=== PATIENT | female | born 1940 | race Hispanic/Latino ===

== ENCOUNTER 2018-05-15 08:01 | Emergency (ER) | payer MEDICARE, OTHER ==
[~2018-05-15 08:01] MED LIST: ATOR20TA65 PO; CETI10TA86 PO; DIPH25CA85 PO; HYDR-2132 PO; LEVO75TA10 PO
[2018-05-15] MEDS ORDERED: CYCLOBENZAPRINE HCL 10 MG TABLET ONE (09:55)
[2018-05-15] MEDS ORDERED: TRAMADOL HCL 50 MG TABLET ONE (09:56)
== END 2018-05-15 10:29 | disposition home or self-care (01) ==
LOC: EDH 08:01
DX: S43.422A Sprain of left rotator cuff capsule, initial encounter (principal); R03.0 Elevated blood-pressure reading, without diagnosis of hypertension; E07.9 Disorder of thyroid, unspecified; E78.5 Hyperlipidemia, unspecified; X50.0XXA Overexertion from strenuous movement or load, initial encounter; Y93.89 Activity, other specified; Y92.89 Other specified places as the place of occurrence of the external cause; Y99.8 Other external cause status
CPT/HCPCS: 71045; 73030

== ENCOUNTER → 2018-09-01 | Outpatient (CLI) | payer MEDICARE, OTHER | END | disposition home or self-care (01) | LOC: OIH 09:00 | PROVIDERS: ATTEND Family Medicine | DX: I10 Essential (primary) hypertension (principal); I70.0 Atherosclerosis of aorta; R53.82 Chronic fatigue, unspecified | CPT/HCPCS: 71046 ==

== ENCOUNTER → 2019-08-22 | Outpatient (CLI) | payer MEDICARE, OTHER | END | disposition home or self-care (01) | LOC: RAH 13:58 | PROVIDERS: ATTEND Family Medicine | DX: Z12.31 Encounter for screening mammogram for malignant neoplasm of breast (principal) | CPT/HCPCS: 77067 ==

== ENCOUNTER → 2021-05-10 | Outpatient (CLI) | payer MEDICARE, OTHER | END | disposition home or self-care (01) | LOC: RAH 09:09 | PROVIDERS: ATTEND Family Medicine | DX: R10.13 Epigastric pain (principal); K59.00 Constipation, unspecified; M85.80 Other specified disorders of bone density and structure, unspecified site | CPT/HCPCS: 74018 ==

== ENCOUNTER → 2023-04-29 | Outpatient (CLI) | payer OTHER ==
[~2023-04-29] MED LIST changes: -CETI10TA86 PO; +CETI10TA87 PO
== END | disposition home or self-care (01) ==
LOC: RAH 06:50
PROVIDERS: ATTEND Internal Medicine Gastroenterology
DX: R11.0 Nausea (principal); R10.13 Epigastric pain
CPT/HCPCS: 78264; A9541

== ENCOUNTER → 2023-06-04 | Outpatient (CLI) | payer OTHER | END | disposition home or self-care (01) | LOC: RAH 07:52 | PROVIDERS: ATTEND Internal Medicine Gastroenterology | DX: K76.0 Fatty (change of) liver, not elsewhere classified (principal); R10.13 Epigastric pain; J90 Pleural effusion, not elsewhere classified | CPT/HCPCS: 76700 ==

== ENCOUNTER 2023-06-17 10:24 | Emergency (ER) | payer OTHER ==
[~2023-06-17] VITALS: Ht 167.6 cm; Wt 59.9 kg
[2023-06-17 11:22] LABS: BASOPHILS # (AUTO) 0.04 K/uL (0.00-0.20); BASOPHILS % (AUTO) 0.2 % (0.0-5.0); EOSINOPHILS # (AUTO) 0.01 K/uL (0.00-0.70); EOSINOPHILS % (AUTO) 0.1 % (0.0-8.0); HEMATOCRIT 39.2 % (36-48); IMMATURE GRANULOCYTE ABSOLUTE 0.15 K/uL (0-1); LYMPHOCYTES % (AUTO) 11.6 % (21.0-51.0); MEAN CORPUSCULAR HEMOGLOBIN 30.5 pg (27.0-33.0); MEAN CORPUSCULAR HGB CONC 33.9 g/dL (32.0-36.0); MEAN CORPUSCULAR VOLUME 89.9 fL (79-99); MONOCYTES # (AUTO) 1.1 K/uL (0.1-1.0); MONOCYTES % (AUTO) 6.5 % (3.0-13.0); NEUTROPHILS # (AUTO) 13.9 K/uL (1.8-7.7); NEUTROPHILS % (AUTO) 80.7 % (40.0-77.0); PLATELET COUNT (AUTO) 262 K/uL (130-400); RED BLOOD CELL COUNT(AUTO) 4.36 MIL/uL (4.00-5.50); RED CELL DISTRIBUTION WIDTH 13.2 % (11.0-15.5); WHITE BLOOD COUNT (AUTO) 17.2 K/uL (4.8-10.8)
[2023-06-17] MEDS ORDERED: MORPHINE 4 MG SYG IVP ONE (11:30)
[2023-06-17] MEDS ORDERED: PANTOPRAZOLE 40 MG/VIAL IVP ONE (11:30)
[2023-06-17] MEDS ORDERED: LIDOCAINE HCL 2% VISCOUS 15 ML UDCUP PO ONE ×2 (11:30→15:30)
[2023-06-17] MEDS ORDERED: 0.9%NACL 1000ML 2,000 ML IV ONE (11:30)
[2023-06-17] MEDS ORDERED: ONDANSETRON 4MG INJ IVP ONE (11:30)
[2023-06-17 11:35] LABS: ALBUMIN 4.5 g/dL (3.5-5.0); BILIRUBIN,TOTAL 0.6 mg/dL (0.2-1.0); CREATININE 0.9 mg/dL (0.5-1.5); POTASSIUM 3.3 mmol/L (3.5-5.1)
[2023-06-17] MEDS: MAG/ALUM/SIMETH 30 ML UDCUP PO ONE ×2 (11:52→15:28)
[2023-06-17] MEDS ORDERED: POTASSIUM BICARB/CIT AC 25 MEQ TABLET.EFF PO ONE (12:00)
[2023-06-17] MEDS ORDERED: ZOSYN 3.375GM +NS 50ML IVPB ONE (12:00)
[2023-06-17] MEDS ORDERED: ZOSYN 3.375GM+NS 50ML 50 ML IVPB ONE (12:03)
[2023-06-17 12:40] LABS: APPEARANCE,URINE CLOUDY (CLEAR); BILIRUBIN,URINE NEGATIVE (NEGATIVE); COLOR,URINE YELLOW (YELLOW); GLUCOSE, URINE (UA) NEGATIVE (NEGATIVE); KETONES,URINE 60 mg/dL (NEGATIVE); LEUKOCYTE ESTERASE ,URINE NEGATIVE Leu/uL (NEGATIVE); NITRATE,URINE NEGATIVE (NEGATIVE); OCCULT BLOOD,URINE NEGATIVE (NEGATIVE); PROTEIN,URINE 50 mg/dL (NEGATIVE); UROBILINOGEN,URINE 0.2 mg/dL (0.2-1.0)
[2023-06-17 12:44] LABS: ADD UA MICROSCOPIC YES
[2023-06-17 12:50] LABS: BACTERIA,URINE MOD /HPF (None Seen); MUCUS,URINE MANY LPF (None Seen); OTHER CASTS, URINE 1 /LPF (None Seen); SQUAMOUS EPITHELIAL CELL,UR RARE /HPF (0-2)
[2023-06-17] MEDS ORDERED: MORPHINE 2 MG SYG IVP ONE (13:00)
[2023-06-17 15:32] VITALS: BP 139/74; PULSE 89; RESP 16; O2SAT 96
[2023-06-17] MEDS ORDERED: NA P133E22 RC (17:49)
== END 2023-06-17 18:43 | disposition home or self-care (01) ==
LOC: EDH 10:24
DX: K59.00 Constipation, unspecified (principal); D72.829 Elevated white blood cell count, unspecified; E78.00 Pure hypercholesterolemia, unspecified; K21.9 Gastro-esophageal reflux disease without esophagitis; E03.9 Hypothyroidism, unspecified; M19.90 Unspecified osteoarthritis, unspecified site; F03.90 Unspecified dementia, unspecified severity, without behavioral disturbance, psychotic disturbance, mood disturbance, and anxiety; Z79.899 Other long term (current) drug therapy
CPT/HCPCS: 99285; 74176; 96365; 96375; 82150; 84484; 80053; 83690; 85025; 87040 ×2; 87077; 87088; 87186; 83605 ×2; 81001; 36415; 96376; 93005; J2270 ×2; J7030; J2405; J2543; C9113

== ENCOUNTER 2023-06-18 21:33 | Emergency (ER) | payer OTHER ==
[~2023-06-18] VITALS: Ht 165.1 cm; Wt 59.9 kg
[~2023-06-18 21:33] MED LIST changes: +NA P133E22 RC
[2023-06-18] MEDS ORDERED: 0.9%NACL 1000ML 1,000 ML IV ONE (22:00)
[2023-06-18] MEDS ORDERED: ONDANSETRON 4MG INJ IVP ONE (22:00)
[2023-06-18] MEDS ORDERED: FAMOTIDINE 20MG VIAL IV ONE (22:00)
[2023-06-18 22:13] LABS: BASOPHILS # (AUTO) 0.04 K/uL (0.00-0.20); BASOPHILS % (AUTO) 0.4 % (0.0-5.0); EOSINOPHILS # (AUTO) 0.05 K/uL (0.00-0.70); EOSINOPHILS % (AUTO) 0.4 % (0.0-8.0); HEMATOCRIT 35.5 % (36-48); IMMATURE GRANULOCYTE ABSOLUTE 0.07 K/uL (0-1); LYMPHOCYTES # (AUTO) 3.7 K/uL (1.0-4.8); LYMPHOCYTES % (AUTO) 32.7 % (21.0-51.0); MEAN CORPUSCULAR HEMOGLOBIN 30.9 pg (27.0-33.0); MEAN CORPUSCULAR HGB CONC 34.1 g/dL (32.0-36.0); MEAN CORPUSCULAR VOLUME 90.6 fL (79-99); MONOCYTES # (AUTO) 0.9 K/uL (0.1-1.0); MONOCYTES % (AUTO) 7.7 % (3.0-13.0); NEUTROPHILS # (AUTO) 6.6 K/uL (1.8-7.7); NEUTROPHILS % (AUTO) 58.2 % (40.0-77.0); PLATELET COUNT (AUTO) 245 K/uL (130-400); RED BLOOD CELL COUNT(AUTO) 3.92 MIL/uL (4.00-5.50); RED CELL DISTRIBUTION WIDTH 13.3 % (11.0-15.5); WHITE BLOOD COUNT (AUTO) 11.4 K/uL (4.8-10.8)
[2023-06-18 22:25] LABS: CREATININE 0.8 mg/dL (0.5-1.5); POTASSIUM 3.2 mmol/L (3.5-5.1)
[2023-06-18 22:34] LABS: ALBUMIN 3.8 g/dL (3.5-5.0); BILIRUBIN,TOTAL 0.6 mg/dL (0.2-1.0); TOTAL PROTEIN, SERUM 7.1 g/dL (6.0-8.3)
[2023-06-19 00:02] LABS: APPEARANCE,URINE CLEAR (CLEAR); BILIRUBIN,URINE NEGATIVE (NEGATIVE); COLOR,URINE COLORLESS (YELLOW); GLUCOSE, URINE (UA) NEGATIVE (NEGATIVE); KETONES,URINE NEGATIVE (NEGATIVE); LEUKOCYTE ESTERASE ,URINE NEGATIVE Leu/uL (NEGATIVE); NITRATE,URINE NEGATIVE (NEGATIVE); OCCULT BLOOD,URINE NEGATIVE (NEGATIVE); PH,URINE 7.5 (5.0-8.0); PROTEIN,URINE NEGATIVE (NEGATIVE); UROBILINOGEN,URINE 0.2 mg/dL (0.2-1.0)
[2023-06-19 00:05] LABS: MUCUS,URINE RARE LPF (None Seen); SQUAMOUS EPITHELIAL CELL,UR RARE /HPF (0-2)
[2023-06-19] MEDS ORDERED: ONDA4TAB10 PO (00:20)
[2023-06-19] MEDS ORDERED: LACT20PA6 PO (00:20)
[2023-06-19] MEDS ORDERED: DOCU-116 PO (00:20)
[2023-06-19] MEDS ORDERED: SUCR1TAB2 PO (00:20)
[2023-06-19 00:32] VITALS: BP 164/74; PULSE 80; RESP 18; O2SAT 99
[2023-07-06] MEDS ORDERED: SUCR1ORA15 PO (19:29)
[2023-07-06] MEDS ORDERED: ONDA-104 PO (19:29)
== END 2023-06-19 00:40 | disposition home or self-care (01) ==
LOC: EDH 21:33
DX: K59.00 Constipation, unspecified (principal); R10.13 Epigastric pain; R11.2 Nausea with vomiting, unspecified; F03.90 Unspecified dementia, unspecified severity, without behavioral disturbance, psychotic disturbance, mood disturbance, and anxiety; E78.00 Pure hypercholesterolemia, unspecified; E03.9 Hypothyroidism, unspecified; K21.9 Gastro-esophageal reflux disease without esophagitis; M19.90 Unspecified osteoarthritis, unspecified site
CPT/HCPCS: 99284; 96374; 96361; 96375; 84484; 80053; 85025; 81001; 36415; 93005; J3490; J7030; J2405

== ENCOUNTER 2023-06-22 09:30 | Observation (INO) | payer OTHER ==
[~2023-06-22] VITALS: Ht 167.6 cm; Wt 56.0 kg
[~2023-06-22 09:30] MED LIST changes: +DOCU-116 PO; +LACT20PA6 PO; +ONDA4TAB10 PO; +SUCR1TAB2 PO
[2023-06-22] MEDS ORDERED: DIPHENHYDRAMINE HCL 25 MG CAPSULE PO PRN (11:00)
[2023-06-22] MEDS ORDERED: ACETAMINOPHEN 325 MG TAB PO PRN (11:00)
[2023-06-22] MEDS ORDERED: MAG/ALUM/SIMETH 30 ML UDCUP PO PRN (11:00)
[2023-06-22] MEDS ORDERED: ZOLPIDEM TARTRATE 5 MG TAB PO PRN (11:00)
[2023-06-22] MEDS ORDERED: ONDANSETRON 4MG INJ IVP PRN (11:00)
[2023-06-22] MEDS ORDERED: GUAIFENESIN-DM 200/20 MG 10 ML PO PRN (11:00)
[2023-06-22 11:09] LABS: CREATININE 1.3 mg/dL (0.5-1.5)
[2023-06-22 11:10] LABS: ALBUMIN 4.5 g/dL (3.5-5.0); BILIRUBIN,TOTAL 0.6 mg/dL (0.2-1.0); TOTAL PROTEIN, SERUM 8.4 g/dL (6.0-8.3)
[2023-06-22 11:12] LABS: POTASSIUM 2.3 mmol/L (3.5-5.1)
[2023-06-22 11:23] LABS: BILIRUBIN,DIRECT 0.2 mg/dL (0.0-0.3)
[2023-06-22 11:36] LABS: BASOPHILS # (AUTO) 0.05 K/uL (0.00-0.20); BASOPHILS % (AUTO) 0.5 % (0.0-5.0); EOSINOPHILS # (AUTO) 0.07 K/uL (0.00-0.70); EOSINOPHILS % (AUTO) 0.6 % (0.0-8.0); HEMATOCRIT 43.4 % (36-48); IMMATURE GRANULOCYTE ABSOLUTE 0.12 K/uL (0-1); LYMPHOCYTES # (AUTO) 3.8 K/uL (1.0-4.8); LYMPHOCYTES % (AUTO) 34.7 % (21.0-51.0); MEAN CORPUSCULAR HEMOGLOBIN 31.4 pg (27.0-33.0); MEAN CORPUSCULAR HGB CONC 35.5 g/dL (32.0-36.0); MEAN CORPUSCULAR VOLUME 88.4 fL (79-99); MONOCYTES % (AUTO) 8.8 % (3.0-13.0); NEUTROPHILS # (AUTO) 5.9 K/uL (1.8-7.7); NEUTROPHILS % (AUTO) 54.3 % (40.0-77.0); PLATELET COUNT (AUTO) 328 K/uL (130-400); RED BLOOD CELL COUNT(AUTO) 4.91 MIL/uL (4.00-5.50); RED CELL DISTRIBUTION WIDTH 13.3 % (11.0-15.5); WHITE BLOOD COUNT (AUTO) 10.9 K/uL (4.8-10.8)
[2023-06-22 11:59] VITALS: BP 153/78; PULSE 63; RESP 18
[2023-06-22] MEDS ORDERED: POTASSIUM CHLORIDE 20MEQ/100ML 100 ML IV PRN ×2 (12:00)
[2023-06-22] MEDS ORDERED: POTASSIUM CHLORIDE 10% ELIXIR 20 MEQ/15 ML UDCUP PO PRN (12:00)
[2023-06-22] MEDS: DEXTROSE 5 %-0.45 % NACL 1,000 ML IV SCH ×2 (12:22→21:36)
[2023-06-22] MEDS: KCL 20 MEQ ERTAB PO PRN ×6 (12:25→23:15)
[2023-06-22] MEDS ORDERED: VENL-191 PO (12:29)
[2023-06-22] MEDS ORDERED: MULT-1367 PO (12:55)
[2023-06-22] MEDS ORDERED: IOHEXOL 350 MG/ML 100ML INFUS..BTL IV ONE (12:59)
[2023-06-22] MEDS ORDERED: MEMA10TA55 PO (13:02)
[2023-06-22] MEDS ORDERED: LEVO88CA4 PO (13:02)
[2023-06-22] MEDS ORDERED: ROSU10TA28 PO (13:02)
[2023-06-22] MEDS ORDERED: FAMO20TA8 PO (13:02)
[2023-06-22] MEDS ORDERED: RIVA6CAP18 PO (13:02)
[2023-06-22] MEDS ORDERED: ALEN70TA80 PO (13:02)
[2023-06-22] MEDS ORDERED: PANT40TA54 PO (13:02)
[2023-06-22 13:04] VITALS: O2SAT 97
[2023-06-22 16:00] VITALS: BP 121/84; PULSE 85; RESP 18
[2023-06-22 19:37] VITALS: O2SAT 98
[2023-06-22 20:53] VITALS: BP 134/76; PULSE 86; RESP 18
[2023-06-22] MEDS: FAMOTIDINE 20MG TAB PO SCH ×2 (21:00→21:29)
[2023-06-22] MEDS: PANTOPRAZOLE 40 MG/VIAL IVP SCH (21:29)
[2023-06-23 00:07] VITALS: BP 135/73; PULSE 89; RESP 18
[2023-06-23] MEDS: KCL 20 MEQ ERTAB PO PRN (00:52)
[2023-06-23] MEDS: DEXTROSE 5 %-0.45 % NACL 1,000 ML IV SCH ×3 (02:06→09:48)
[2023-06-23 04:19] VITALS: BP 133/76; PULSE 80; RESP 17
[2023-06-23 05:14] LABS: BASOPHILS # (AUTO) 0.06 K/uL (0.00-0.20); BASOPHILS % (AUTO) 0.8 % (0.0-5.0); EOSINOPHILS # (AUTO) 0.09 K/uL (0.00-0.70); EOSINOPHILS % (AUTO) 1.1 % (0.0-8.0); HEMATOCRIT 35.2 % (36-48); LYMPHOCYTES # (AUTO) 3.3 K/uL (1.0-4.8); LYMPHOCYTES % (AUTO) 42.1 % (21.0-51.0); MEAN CORPUSCULAR HEMOGLOBIN 30.7 pg (27.0-33.0); MEAN CORPUSCULAR HGB CONC 33.2 g/dL (32.0-36.0); MEAN CORPUSCULAR VOLUME 92.4 fL (79-99); MONOCYTES # (AUTO) 0.9 K/uL (0.1-1.0); MONOCYTES % (AUTO) 11.6 % (3.0-13.0); NEUTROPHILS # (AUTO) 3.4 K/uL (1.8-7.7); NEUTROPHILS % (AUTO) 43.1 % (40.0-77.0); PLATELET COUNT (AUTO) 246 K/uL (130-400); RED BLOOD CELL COUNT(AUTO) 3.81 MIL/uL (4.00-5.50); RED CELL DISTRIBUTION WIDTH 13.5 % (11.0-15.5); WHITE BLOOD COUNT (AUTO) 7.9 K/uL (4.8-10.8)
[2023-06-23 05:24] LABS: CREATININE 0.9 mg/dL (0.5-1.5); POTASSIUM 4.1 mmol/L (3.5-5.1)
[2023-06-23 08:00] VITALS: BP 125/66; PULSE 70; RESP 18; O2SAT 99
[2023-06-23] MEDS: FAMOTIDINE 20MG TAB PO SCH (09:00)
[2023-06-23] MEDS: PANTOPRAZOLE 40 MG/VIAL IVP SCH (09:50)
[2023-06-23 12:00] VITALS: BP 119/70; PULSE 74; RESP 18
[2023-07-06] MEDS ORDERED: SUCR1ORA15 PO (19:29)
[2023-07-06] MEDS ORDERED: ONDA-104 PO (19:29)
[2023-07-08] MEDS ORDERED: RIVA6CAP18 PO (13:07)
== END 2023-06-23 14:30 | disposition home or self-care (01) ==
LOC: EDH 09:30 → DIRECT 10:41 → 4BH 12:10
PROVIDERS: ADMIT Internal Medicine; ATTEND Internal Medicine
DX: K59.00 Constipation, unspecified (principal); K29.40 Chronic atrophic gastritis without bleeding; K21.9 Gastro-esophageal reflux disease without esophagitis; K55.1 Chronic vascular disorders of intestine; E86.0 Dehydration; E03.9 Hypothyroidism, unspecified; F03.90 Unspecified dementia, unspecified severity, without behavioral disturbance, psychotic disturbance, mood disturbance, and anxiety; R16.0 Hepatomegaly, not elsewhere classified; M81.0 Age-related osteoporosis without current pathological fracture; E78.5 Hyperlipidemia, unspecified; Z79.899 Other long term (current) drug therapy
CPT/HCPCS: 96374; 96361 ×3; 99284; 84132; 80061; 80053; 85025 ×2; 36415 ×2; 74174; 96376; 80048; G0378 ×26; G0379; J3480; C9113 ×2; Q9967; 80076; 83690

== ENCOUNTER 2023-09-11 12:13 | Emergency (ER) | payer OTHER ==
[~2023-09-11] VITALS: Ht 167.6 cm; Wt 72.6 kg
[~2023-09-11 12:13] MED LIST changes: +ALEN70TA80 PO; -ATOR20TA65 PO; -CETI10TA87 PO; -DIPH25CA85 PO; +FAMO20TA8 PO; -HYDR-2132 PO; -LACT20PA6 PO; +MEMA10TA55 PO; +MULT-1367 PO; -NA P133E22 RC; +ONDA-104 PO; -ONDA4TAB10 PO; +PANT40TA54 PO; +RIVA6CAP18 PO; +SUCR1ORA15 PO; -SUCR1TAB2 PO; +VENL-191 PO
[2023-09-11] MEDS ORDERED: LACTATED RINGERS 1000ML 1,000 ML IV ONE (13:00)
[2023-09-11 13:27] LABS: BASOPHILS # (AUTO) 0.03 K/uL (0.00-0.20); BASOPHILS % (AUTO) 0.3 % (0.0-5.0); EOSINOPHILS # (AUTO) 0.01 K/uL (0.00-0.70); EOSINOPHILS % (AUTO) 0.1 % (0.0-8.0); HEMATOCRIT 38.4 % (36-48); IMMATURE GRANULOCYTE ABSOLUTE 0.03 K/uL (0-1); LYMPHOCYTES # (AUTO) 1.3 K/uL (1.0-4.8); LYMPHOCYTES % (AUTO) 15.3 % (21.0-51.0); MEAN CORPUSCULAR HEMOGLOBIN 30.9 pg (27.0-33.0); MEAN CORPUSCULAR HGB CONC 33.1 g/dL (32.0-36.0); MEAN CORPUSCULAR VOLUME 93.4 fL (79-99); MONOCYTES # (AUTO) 0.5 K/uL (0.1-1.0); MONOCYTES % (AUTO) 5.8 % (3.0-13.0); NEUTROPHILS # (AUTO) 6.8 K/uL (1.8-7.7); NEUTROPHILS % (AUTO) 78.2 % (40.0-77.0); PLATELET COUNT (AUTO) 159 K/uL (130-400); RED BLOOD CELL COUNT(AUTO) 4.11 MIL/uL (4.00-5.50); WHITE BLOOD COUNT (AUTO) 8.7 K/uL (4.8-10.8)
[2023-09-11 13:42] LABS: CREATININE 1.1 mg/dL (0.5-1.5); POTASSIUM 3.1 mmol/L (3.5-5.1)
[2023-09-11 14:04] LABS: ADD UA MICROSCOPIC YES; APPEARANCE,URINE CLOUDY (CLEAR); BILIRUBIN,URINE NEGATIVE (NEGATIVE); COLOR,URINE LIGHT-YELLOW (YELLOW); GLUCOSE, URINE (UA) NEGATIVE (NEGATIVE); KETONES,URINE 20 mg/dL (NEGATIVE); LEUKOCYTE ESTERASE ,URINE NEGATIVE Leu/uL (NEGATIVE); NITRATE,URINE NEGATIVE (NEGATIVE); OCCULT BLOOD,URINE NEGATIVE (NEGATIVE); PROTEIN,URINE NEGATIVE (NEGATIVE); UROBILINOGEN,URINE 0.2 mg/dL (0.2-1.0)
[2023-09-11 14:05] LABS: BACTERIA,URINE RARE /HPF (None Seen); MUCUS,URINE RARE LPF (None Seen); RBC,URINE 0-1 /HPF (0-1); SQUAMOUS EPITHELIAL CELL,UR RARE /HPF (0-2)
[2023-09-11 14:23] LABS: ALBUMIN 3.9 g/dL (3.5-5.0); BILIRUBIN,DIRECT 0.1 mg/dL (0.0-0.3); BILIRUBIN,TOTAL 0.4 mg/dL (0.2-1.0); TOTAL PROTEIN, SERUM 7.5 g/dL (6.0-8.3)
[2023-09-11 15:39] VITALS: BP 158/72; PULSE 63; RESP 18; O2SAT 98
[2023-09-11] MEDS ORDERED: ONDA4TAB10 PO (15:40)
== END 2023-09-11 16:07 | disposition home or self-care (01) ==
LOC: EDH 12:13
DX: E87.6 Hypokalemia (principal); F03.90 Unspecified dementia, unspecified severity, without behavioral disturbance, psychotic disturbance, mood disturbance, and anxiety; E78.00 Pure hypercholesterolemia, unspecified; E03.9 Hypothyroidism, unspecified; K21.9 Gastro-esophageal reflux disease without esophagitis; M19.90 Unspecified osteoarthritis, unspecified site; Z79.899 Other long term (current) drug therapy
CPT/HCPCS: 99285; 96360; 71045; 96361; 80076; 84484; 80048; 83690; 85025; 81001; 36415; 93005; J7120

== ENCOUNTER → 2023-12-30 | Outpatient (CLI) | payer OTHER ==
[~2023-12-30] MED LIST changes: +ONDA4TAB10 PO
== END | disposition home or self-care (01) ==
LOC: RAH 10:00
PROVIDERS: ATTEND Internal Medicine Gastroenterology
DX: R68.81 Early satiety (principal)
CPT/HCPCS: 78264; A9541

== ENCOUNTER → 2024-06-20 | Outpatient (CLI) | payer OTHER ==
[~2024-06-20] MED LIST changes: +MEMA10TA21 PO; -MEMA10TA55 PO; +ONDA-243 PO; -ONDA4TAB10 PO
== END | disposition home or self-care (01) ==
LOC: LAB 08:55
PROVIDERS: ATTEND Internal Medicine
DX: M62.81 Muscle weakness (generalized) (principal)
CPT/HCPCS: 36415; 82533

== ENCOUNTER 2025-08-29 21:51 | Observation (INO) | payer OTHER ==
[~2025-08-29] VITALS: Ht 167.6 cm; Wt 81.6 kg
[~2025-08-29 21:51] MED LIST changes: -ALEN70TA80 PO; -DOCU-116 PO; +LEVO75CA6 PO; -LEVO75TA10 PO; -MULT-1367 PO; -ONDA-104 PO; -ONDA-243 PO; -RIVA6CAP18 PO; -SUCR1ORA15 PO; -VENL-191 PO
--- NOTE | 2025-08-29 22:11 | ERN ---
ED Note History of Present Illness Stated Complaint: ABDOMINAL PAIN Chief Complaint: Abdominal Pain Time Seen by MD: 21:58 Dictation: This is an 85-year-old female who came in via EMS for ongoing abdominal pain. Patient's spouse who was with the patient stated that she has a history of constipation and she began experiencing abdominal discomfort mostly in the left lower quadrant area around this afternoon. She stated that she felt like she needed to have a bowel movement. Eventually when the stated he made her come into the ER for further evaluation. Report some nausea but no vomitings. She also reported that she had to burp but could not felt like she had lot of air in her abdomen Temperature 98.2 pulse 66 respirations NT blood pressure 176/83 with a pulse oximetry of 99% on room air Her chronic medical problems include gastroesophageal reflux disease, dementia, vitamin-D deficiency, high cholesterol and hypothyroidism Allergies: Coded Allergies: No Known Drug Allergies (Verified Allergy, Unknown, 02/06/17) Home Meds Reported Medications Memantine HCl (Memantine HCl) 10 Mg Tablet, 1 TAB PO BID for 30 Days, #60 TAB 0 Refills 10/18/24 Levothyroxine Sodium (Levothyroxine) 75 Mcg Capsule, 1 TAB PO DAILY for 30 Days, #30 CAP 0 Refills 10/18/24 Famotidine (Famotidine) 20 Mg Tablet, 1 TAB PO BID for 30 Days, #60 TAB 0 Refills 10/18/24 Pantoprazole Sodium (Pantoprazole Sodium) 40 Mg Tablet.dr, 1 TAB PO DAILY for 30 Days, #30 TAB 0 Refills 10/18/24 Past Medical History Past Medical History: Dementia, GERD, High Cholesterol, Hypothyroid Additional Past Medical Hx: MESENTERIC ARTHRITIS Surgical History: Other Family History: Negative Social History: Negative, Lives with family History: Not Applicable RN Note Reviewed/Agreed w/PFSH: Yes Review of System Dictation Constitutional: Negative for fever,chills, and weight loss Eyes: Negative for injury, pain,redness, and discharge ENT: Negative for injury,pain or swelling Cardiovascular: Negative for chest pain, palpitations, and edema Respiratory: Negative for shortness of breath, cough, and wheezing, Abdomen/GI: Positive for abdominal pain, nausea, , and constipation denied vomiting, diarrhea Back: Negative for injury and pain : Negative for injury, bleeding and discharge MS/Extremity: Negative for injury and deformity Skin: Negative for rash, and discoloration Neuro: Negative for headache, weakness, numbness, tingling, and seizure Psych: Negative for suicide ideation, homicidal ideation, and hallucinations Initial Vital Sign VS Vital Signs Date Time Temp Pulse Resp B/P (MAP) Pulse Ox O2 Delivery O2 Flow Rate FiO2 08/29/25 21:54 98.1 66 18 176/83 99 Room Air 0 08/29/25 22:23 21 Physical Exam Dictation General: awake, alert, NAD Head/Face: Normocephalic, atraumatic Eyes: PERRL, EOMI, vision at baseline ENT: oral cavity clear, TMs clear, no signs of infection Neck: Trachea midline, supple, no nuchal rigidity Cardiovascular: RRR, normal S1/S2, No MRGs, no JVD Respiratory: CTAB, no respiratory distress, No rales or wheezes Abdomen: Soft, mild tenderness diffusely, non-distended, normal bowel sounds, no guarding or rebound. Skin: Warm, dry, normal turgor, no rash MS/Extremity: Pulses equal, no cyanosis, neurovascular intact, FROM Neuro: COAx4, GCS 15, strength 5/5, CN 2-12 intact, normal cerebellar exam, normal gait, Psych: Normal behavior, mood, and affect normal Extremities-trace edema without any palpable cords, Homans sign is negative Results (Laboratory/Radiology) Laboratory/Radiology Laboratory Tests Test 08/29/25 22:19 08/29/25 23:00 White Blood Count 10.5 K/uL (4.8-10.8) Red Blood Count 3.63 MIL/uL (4.00-5.50) L Hemoglobin 11.1 g/dL (12.0-16.0) L Hematocrit 33.9 % (36-48) L Mean Corpuscular Volume 93.4 fL (79-99) Mean Corpuscular Hemoglobin 30.6 pg (27.0-33.0) Mean Corpuscular Hemoglobin Concent 32.7 g/dL (32.0-36.0) Red Cell Distribution Width 13.8 % (11.0-15.5) Platelet Count 199 K/uL (130-400) Mean Platelet Volume 9.6 fL (7.5-10.5) Immature Granulocyte % (Auto) 0.7 % (0-1) Neutrophils (%) (Auto) 32.1 % (40.0-77.0) L Lymphocytes (%) (Auto) 57.9 % (21.0-51.0) H Monocytes (%) (Auto) 7.4 % (3.0-13.0) Eosinophils (%) (Auto) 1.6 % (0.0-8.0) Basophils (%) (Auto) 0.3 % (0.0-5.0) Neutrophils # (Auto) 3.4 K/uL (1.8-7.7) Lymphocytes # (Auto) 6.1 K/uL (1.0-4.8) H Monocytes # (Auto) 0.8 K/uL (0.1-1.0) Eosinophils # (Auto) 0.17 K/uL (0.00-0.70) Basophils # (Auto) 0.03 K/uL (0.00-0.20) Absolute Immature Granulocyte (auto 0.07 K/uL (0-1) Segmented Neutrophils % 30 % (40-70) L Lymphocytes % (Manual) 25 % (22-44) Monocytes % (Manual) 11 % (2-9) H Eosinophils % (Manual) 1 % (1-6) Basophils % (Manual) 1 % (0-2) Metamyelocytes % 1 % (0-0) H Myelocytes % 2 % (0-0) H Nucleated Red Blood Cells 0.0 % (0.0-0.19) Differential Comment MANUAL DIFFERENTIAL Reactive Lymphocytes 29 % (0-0) H White Cell Morphology Comment See comments Platelet Morphology Comment ADEQUATE Red Blood Cell Morphology ANISO 1+ Sodium Level 142 mmol/L (136-145) Potassium Level 3.8 mmol/L (3.5-5.1) Chloride Level 106 mmol/L (101-111) Carbon Dioxide Level 25 mmol/L (21-32) Blood Urea Nitrogen 34 mg/dL (7-18) H Creatinine 1.0 mg/dL (0.5-1.0) Glomerular Filtration Rate Calc 56 mL/min (>90) Random Glucose 184 mg/dL (70-105) H Total Calcium 8.9 mg/dL (8.5-10.1) Lipase 58 U/L (16-77) Urine Color LIGHT-YELLOW (YELLOW) Urine Appearance CLEAR (CLEAR) Urine pH 7.0 (5.0-8.0) Urine Specific [place] 1.021 (1.001-1.031) Urine Protein NEGATIVE mg/dL (NEGATIVE) Urine Glucose (UA) NEGATIVE mg/dL (NEGATIVE) Urine Ketones NEGATIVE mg/dL (NEGATIVE) Urine Occult Blood NEGATIVE (NEGATIVE) Urine Nitrate NEGATIVE (NEGATIVE) Urine Bilirubin NEGATIVE mg/dL (NEGATIVE) Urine Urobilinogen 0.2 mg/dL (0.2-1.0) Urine Leukocyte Esterase 75 Art/uL (NEGATIVE) H Urine RBC 2-5 /HPF (0-1) H Urine WBC 11-25 /HPF (0-1) H Urine Other Crystals (Auto) 1 /HPF (None Seen) Urine Bacteria RARE /HPF (None Seen) Labs Reviewed?: Yes CT Scan Comment: REASON: [facility] PAIN ORDERING PHYSICIAN: MARGA KAPLAN MD PROCEDURE: ABD PEL WO - CT ABDOMEN/PELVIS W/O CONTRAST EXAM: CT Abdomen and Pelvis Without IV contrast. CLINICAL HISTORY: Abdominal pain. TECHNIQUE: Axial computed tomography images of the abdomen and pelvis without intravenous contrast. CONTRAST: No IV contrast. COMPARISON: None provided. FINDINGS: LUNG BASES: Mild bibasilar atelectasis. The rest of the lung bases appear clear. No pleural effusions are seen. LIVER: Hepatomegaly; the craniocaudal length of the right lobe of the liver measuring up to 18 cm. GALLBLADDER AND BILE DUCTS: The gallbladder appears within normal limits. No radioopaque gallstones are seen. No biliary ductal dilatation is evident. PANCREAS: Unremarkable. SPLEEN: Unremarkable. ADRENAL GLANDS: Unremarkable. KIDNEYS, URETERS, AND BLADDER: A small cortical calcification in the interpolar region of the left kidney. The kidneys appear within normal limits. There is no hydronephrosis or hydroureter. No urinary calculi are seen. STOMACH AND BOWEL: Sigmoid diverticulosis without diverticulitis. Unremarkable appearance of the stomach and the rest of the bowel. No evidence of bowel obstruction. No evidence suggesting enteritis or colitis. A moderate amount of fecal matter in the large bowel may represent a component of constipation. APPENDIX: No evidence of acute appendicitis on CT examination. Small umbilical hernia containing fat. PERITONEUM: No free fluid. No free air. LYMPH NODES: No lymphadenopathy is evident. REPRODUCTIVE: Status post hysterectomy. VASCULATURE: Mild atherosclerotic wall calcifications in the abdominal aorta. No evidence of abdominal aortic aneurysm. BONES: Moderate multilevel degenerative changes in the spine. No aggressive appearing osseous lesion. No acute osseous pathology evident. IMPRESSION: No acute intra-abdominal or pelvic abnormality. Sigmoid diverticulosis without diverticulitis. Mild hepatomegaly. /[place] DICTATED BY: NAFISA TANG Jr., MD DATE: 08/30/259 ELECTRONICALLY SIGNED BY: NAFISA TANG Jr., MD DATE: 08/30/259 ED Course ED Course Orders Procedure Category Date Status Time Cbc With Differential LAB 08/29/25 In Process 22:09 Urinalysis Profile LAB 08/29/25 Complete 22:09 0.9%Nacl 1000ml (Ns PHA 08/29/25 In Process 1000ml) 22:30 Ct Abdomen/Pelvis W/O CT 08/29/25 Resulted Contrast 22:09 Lipase LAB 08/29/25 Complete 22:09 Basic Metabolic Panel LAB 08/29/25 Complete 22:09 Manual Differential LAB 08/29/25 In Process 22:19 Culture Urine NURIA 08/29/25 In Process 23:18 Pathology Smear Review LAB 08/29/25 In Process 22:19 0.9%Nacl 1000ml (Ns PHA 08/30/25 Logged 1000ml) 01:00 Ceftriaxone 1g Vial PHA 08/30/25 Logged (Rocephine 1g Inj) 01:00 Current Medications Medications (Trade) Dose Ordered Sig/Carmelo Route PRN Reason Start Time Stop Time Status Last Admin Dose Admin Sodium Chloride 1,000 ml @ 125 mls/hr ONCE ONCE IV 08/29/25 22:30 08/30/25 06:29 08/29/25 22:30 Vital Signs Date Time Temp Pulse Resp B/P (MAP) Pulse Ox O2 Delivery O2 Flow Rate FiO2 08/29/25 22:23 98.1 66 18 133/68 98 Room Air* 0 21 08/29/25 21:54 98.1 66 18 176/83 99 Room Air 0 We will perform diagnostic labs, advanced imaging and administer medications according to the patient's complaint. Once the results are available, will review and personally interpreted the labs to rule out any acute life- threatening emergency the trach require immediate intervention and treatment. I will then re-evaluate the patient after treatment and diagnostic exams have return to determine whether the patient requires any further testing, can safely be discharged home or need further admission to hospital for additional treatment and evaluation. 12:40 a.m. patient accepted by Dr. Munoz, covering for Dr. Anguiano for admission and further management Medical Decision Making MDM Differential diagnosis: Constipation, gastritis, cholecystitis, diverticulitis, pancreatitis This is an 85-year-old female who came in via EMS for ongoing abdominal pain. Patient's spouse who was with the patient stated that she has a history of constipation and she began experiencing abdominal discomfort mostly in the left lower quadrant area around this afternoon. She stated that she felt like she needed to have a bowel movement. Eventually when the stated he made her come into the ER for further evaluation. Report some nausea but no vomitings. She also reported that she had to burp but could not felt like she had lot of air in her abdomen Temperature 98.2 pulse 66 respirations NT blood pressure 176/83 with a pulse oximetry of 99% on room air Her chronic medical problems include gastroesophageal reflux disease, dementia, vitamin-D deficiency, high cholesterol and hypothyroidism 11:00 p.m. labs reviewed CBC is with a normal limits BNP 7 shows a BUN and creatinine of 34 and 1.0. Urinalysis is pending [address] scan of the abdomen and pelvis is still pending 12:15 a.m. urinalysis is abnormal with positive leuko esterase and increased WBCs consistent with a UTI. CT scan of the abdomen and pelvis did not show any acute intra-abdominal pathology patient has diverticulosis but without dive rticulitis this time she does have fecal burden consistent with severe constipation. Patient's spouse is elderly all and hence I recommended admission for management of not only UTI and constipation with a dehydration and acute kidney injury Rationale: Tests considered and ordered secondary to shared decision making include: labs, ECG and radiology Previous outside records reviewed: Old ER visits. Risk of complication and/or morbidity or mortality of patient management: None Medications-Per medication reconciliation Need for hospitalization: Patient does meet criteria for hospitalization. Need for emergency major/minor surgery: No There are no social concerns with this patient. Prescription drug management Prescriptions will include symptomatic care Patient's prior external medical records from other ER visits were reviewed by me as indicated. Prior testing and results from previous visits were reviewed. Prior tests were taken into account with medical decision making and resource utilization, independent historian/historians were used to obtain complete medical history. I independently interpreted the test that were performed, results were reviewed by me and considered findings on radiology if ordered. Medical management and examination interpretation discussions were had by me with other qualified healthcare professionals as indicated for the patient's care. Problem List Problem List: (1) Left lower quadrant abdominal pain (2) Constipation (3) Acute kidney injury (4) Diverticulosis (5) Urinary tract infection DX & DISP Disposition: Inpatient Decision to Admit Time: 00:42 Departure Impression: Primary Impression: Left lower quadrant abdominal pain Additional Impressions: Constipation, Diverticulosis, Urinary tract infection, Acute kidney injury Condition: Stable Additional Instructions: Patient was informed of all the diagnostic labs and procedures conducted in the emergency room today and demonstrated understanding of the results. I personally reviewed and interpreted all the diagnostic exams performed in the ER today. The patient will be admitted to the hospital for further treatment and evaluation. Disposition-admit to facility Condition-stable/guarded Course-uncertain at this time Pain status-decreased Assessment-exam unchanged Admission Certification- I certify that the patients status is appropriate and is based on my best clinical judgment and the patient's condition as documented in the medical records Referrals: DOUG ANGUIANO MD (PCP) MARGA KAPLAN MD Aug 29, 2025 22:11
[2025-08-29 22:29] LABS: IMMATURE GRANULOCYTE ABSOLUTE 0.07 K/uL (0-1); NUCLEATED RED BLOOD CELLS 0.0 % (0.0-0.19); PLATELET COUNT (AUTO) 199 K/uL (130-400); RED BLOOD CELL COUNT(AUTO) 3.63 MIL/uL (4.00-5.50); RED CELL DISTRIBUTION WIDTH 13.8 % (11.0-15.5); WHITE BLOOD COUNT (AUTO) 10.5 K/uL (4.8-10.8)
[2025-08-29] MEDS: 0.9%NACL 1000ML 1,000 ML IV ONE (22:30)
[2025-08-29 22:38] LABS: CREATININE 1.0 mg/dL (0.5-1.0); GLOMERULAR FILTR. RATE CALC 56.0 mL/min (>90); GLUCOSE,RANDOM 184.0 mg/dL (70-105); SODIUM SERUM 142.0 mmol/L (136-145); UREA NITROGEN, BLOOD 34.0 mg/dL (7-18)
--- NOTE | 2025-08-29 23:11 | HMCIMG ---
EXAM: CT Abdomen and Pelvis Without IV contrast. CLINICAL HISTORY: Abdominal pain. TECHNIQUE: Axial computed tomography images of the abdomen and pelvis without intravenous contrast. CONTRAST: No IV contrast. COMPARISON: None provided. FINDINGS: LUNG BASES: Mild bibasilar atelectasis. The rest of the lung bases appear clear. No pleural effusions are seen. LIVER: Hepatomegaly; the craniocaudal length of the right lobe of the liver measuring up to 18 cm. GALLBLADDER AND BILE DUCTS: The gallbladder appears within normal limits. No radioopaque gallstones are seen. No biliary ductal dilatation is evident. PANCREAS: Unremarkable. SPLEEN: Unremarkable. ADRENAL GLANDS: Unremarkable. KIDNEYS, URETERS, AND BLADDER: A small cortical calcification in the interpolar region of the left kidney. The kidneys appear within normal limits. There is no hydronephrosis or hydroureter. No urinary calculi are seen. STOMACH AND BOWEL: Sigmoid diverticulosis without diverticulitis. Unremarkable appearance of the stomach and the rest of the bowel. No evidence of bowel obstruction. No evidence suggesting enteritis or colitis. A moderate amount of fecal matter in the large bowel may represent a component of constipation. APPENDIX: No evidence of acute appendicitis on CT examination. Small umbilical hernia containing fat. PERITONEUM: No free fluid. No free air. LYMPH NODES: No lymphadenopathy is evident. REPRODUCTIVE: Status post hysterectomy. VASCULATURE: Mild atherosclerotic wall calcifications in the abdominal aorta. No evidence of abdominal aortic aneurysm. BONES: Moderate multilevel degenerative changes in the spine. No aggressive appearing osseous lesion. No acute osseous pathology evident. IMPRESSION: No acute intra-abdominal or pelvic abnormality. Sigmoid diverticulosis without diverticulitis. Mild hepatomegaly. /[place]
[2025-08-29 23:13] LABS: APPEARANCE,URINE CLEAR (CLEAR); GLUCOSE, URINE (UA) NEGATIVE (NEGATIVE); LEUKOCYTE ESTERASE ,URINE 75 Leu/uL (NEGATIVE); NITRATE,URINE NEGATIVE (NEGATIVE); OCCULT BLOOD,URINE NEGATIVE (NEGATIVE)
[2025-08-29 23:15] LABS: BASOPHILS % (MANUAL) 1 % (0-2); EOSINOPHILS % (MANUAL) 1 % (1-6); LYMPHOCYTES % (MANUAL) 25 % (22-44); METAMYELOCYTES % 1 % (0-0); MONOCYTES % (MANUAL) 11 % (2-9); MYELOCYTES % 2 % (0-0); REACTIVE LYMPHOCYTES 29 % (0-0); SEGMENTED NEUTROPHILS % 30 % (40-70)
[2025-08-29 23:16] LABS: MAN.DIFF COMMENT-IMPRESSION MANUAL DIFFERENTIAL
[2025-08-29 23:17] LABS: PLATELET MORPHOLOGY COMMENT ADEQUATE
[2025-08-29 23:18] LABS: ADD UA MICROSCOPIC YES
[2025-08-29 23:19] LABS: UNCLASSIFIED CRYSTAL 1 /HPF (None Seen)
[2025-08-30] MEDS: 0.9%NACL 1000ML 1,000 ML IV ONE (01:03)
[2025-08-30] MEDS: 1/2 NS 1000ML 1,000 ML IV SCH (02:04)
[2025-08-30] MEDS: LACTULOSE 20 GM/30 ML UDCUP PO ONE (02:04)
[2025-08-30 06:21] LABS: IMMATURE GRANULOCYTE ABSOLUTE 0.05 K/uL (0-1); NUCLEATED RED BLOOD CELLS 0.0 % (0.0-0.19); PLATELET COUNT (AUTO) 198 K/uL (130-400); RED BLOOD CELL COUNT(AUTO) 3.71 MIL/uL (4.00-5.50); RED CELL DISTRIBUTION WIDTH 13.7 % (11.0-15.5); WHITE BLOOD COUNT (AUTO) 9.4 K/uL (4.8-10.8)
[2025-08-30 06:46] LABS: ASPARTATE AMINOTRANSFERASE 32.0 U/L (10-37); CREATININE 0.9 mg/dL (0.5-1.0); GLOMERULAR FILTR. RATE CALC 63.0 mL/min (>90); GLUCOSE,RANDOM 121.0 mg/dL (70-105); SODIUM SERUM 144.0 mmol/L (136-145); TOTAL PROTEIN, SERUM 7.1 g/dL (6.0-8.3); UREA NITROGEN, BLOOD 24.0 mg/dL (7-18)
--- NOTE | 2025-08-30 07:13 | NUR ---
DR. RIVERA ROUNDS TO PATIENTS BEDSIDE, FAMILY PRESENT. PER DR. RIVERA, DISCHARGE PATIENT HOME.
[2025-08-30 07:30] VITALS: BP 153/70; PULSE 62; RESP 18; TEMP 98; O2SAT 99
--- NOTE | 2025-08-30 13:02 | HP ---
HISTORY AND PHYSICAL NOTE DATE OF CONSULTATION: 08/30/25 REASON FOR CONSULTATION: Abdominal pain HISTORY OF PRESENT ILLNESS: This is an 85-year-old female who came in via EMS for ongoing abdominal pain. Patient's spouse who was with the patient stated that she has a history of constipation and she began experiencing abdominal discomfort mostly in the left lower quadrant area around this afternoon. She stated that she felt like she needed to have a bowel movement. Eventually when the stated he made her come into the ER for further evaluation. Report some nausea but no vomitings. She also reported that she had to burp but could not felt like she had lot of air in her abdomen Temperature 98.2 pulse 66 respirations NT blood pressure 176/83 with a pulse oximetry of 99% on room air Her chronic medical problems include gastroesophageal reflux disease, dementia, vitamin-D deficiency, high cholesterol and hypothyroidism Allergies: Coded Allergies: No Known Drug Allergies (Verified Allergy, Unknown, 02/06/17) Home Meds Reported Medications Memantine HCl (Memantine HCl) 10 Mg Tablet, 1 TAB PO BID for 30 Days, #60 TAB 0 Refills 10/18/24 Levothyroxine Sodium (Levothyroxine) 75 Mcg Capsule, 1 TAB PO DAILY for 30 Days, #30 CAP 0 Refills 10/18/24 Famotidine (Famotidine) 20 Mg Tablet, 1 TAB PO BID for 30 Days, #60 TAB 0 Refills 10/18/24 Pantoprazole Sodium (Pantoprazole Sodium) 40 Mg Tablet.dr, 1 TAB PO DAILY for 30 Days, #30 TAB 0 Refills 10/18/24 Past Medical History Past Medical History: Dementia, GERD, High Cholesterol, Hypothyroid Additional Past Medical Hx: MESENTERIC ARTHRITIS Surgical History: Other Family History: Negative Social History: Negative, Lives with family History: Not Applicable RN Note Reviewed/Agreed w/PFSH: Yes Review of System Dictation Constitutional: Negative for fever,chills, and weight loss Eyes: Negative for injury, pain,redness, and discharge ENT: Negative for injury,pain or swelling Cardiovascular: Negative for chest pain, palpitations, and edema Respiratory: Negative for shortness of breath, cough, and wheezing, Abdomen/GI: Positive for abdominal pain, nausea, , and constipation denied vomiting, diarrhea Back: Negative for injury and pain : Negative for injury, bleeding and discharge MS/Extremity: Negative for injury and deformity Skin: Negative for rash, and discoloration Neuro: Negative for headache, weakness, numbness, tingling, and seizure Psych: Negative for suicide ideation, homicidal ideation, and hallucinations ALLERGIES: Coded Allergies: No Known Drug Allergies (Verified Allergy, Unknown, 02/06/17) HOME MEDS: Reported Medications Memantine HCl (Memantine HCl) 10 Mg Tablet, 1 TAB PO BID for 30 Days, #60 TAB 0 Refills 10/18/24 Levothyroxine Sodium (Levothyroxine) 75 Mcg Capsule, 1 TAB PO DAILY for 30 Days, #30 CAP 0 Refills 10/18/24 Famotidine (Famotidine) 20 Mg Tablet, 1 TAB PO BID for 30 Days, #60 TAB 0 Refills 10/18/24 Pantoprazole Sodium (Pantoprazole Sodium) 40 Mg Tablet.dr, 1 TAB PO DAILY for 30 Days, #30 TAB 0 Refills 10/18/24 INPATIENT MEDS: Current Medications Medications Dose Ordered Sig/Carmelo Start Time Stop Time Status Last Admin Sodium Chloride 1,000 ml @ 125 mls/hr Q8H 08/30/25 01:30 09/29/25 01:29 08/30/25 02:04 Ceftriaxone Sodium 1 gm Q24H 08/31/25 01:00 09/10/25 00:59 Acetaminophen 650 mg Q6H PRN 08/30/25 01:30 09/29/25 01:29 VITAL SIGNS Vital Signs Date Time Temp Pulse Resp B/P (MAP) Pulse Ox O2 Delivery O2 Flow Rate FiO2 08/30/25 07:30 98.1 62 18 153/70 99 Room Air* 0 08/30/25 06:05 82 18 143/74 98 Room Air* 0 08/30/25 02:07 98.1 65 18 146/71 98 Room Air* 0 08/29/25 22:23 98.1 66 18 133/68 98 Room Air* 0 08/29/25 21:54 98.1 66 18 176/83 99 Room Air 0 PHYSICAL EXAM Vital Signs Date Time Temp Pulse Resp B/P (MAP) Pulse Ox O2 Delivery O2 Flow Rate FiO2 08/29/25 21:54 98.1 66 18 176/83 99 Room Air 0 08/29/25 22:23 21 General: awake, alert, NAD Head/Face: Normocephalic, atraumatic Eyes: PERRL, EOMI, vision at baseline ENT: oral cavity clear, TMs clear, no signs of infection Neck: Trachea midline, supple, no nuchal rigidity Cardiovascular: RRR, normal S1/S2, No MRGs, no JVD Respiratory: CTAB, no respiratory distress, No rales or wheezes Abdomen: Soft, mild tenderness diffusely, non-distended, normal bowel sounds, no guarding or rebound. Skin: Warm, dry, normal turgor, no rash MS/Extremity: Pulses equal, no cyanosis, neurovascular intact, FROM Neuro: COAx4, GCS 15, strength 5/5, CN 2-12 intact, normal cerebellar exam, normal gait, Psych: Normal behavior, mood, and affect normal Extremities-trace edema without any palpable cords, Homans sign is negative General: awake, alert, NAD Head/Face: Normocephalic, atraumatic Eyes: PERRL, EOMI, vision at baseline ENT: oral cavity clear, TMs clear, no signs of infection Neck: Trachea midline, supple, no nuchal rigidity Cardiovascular: RRR, normal S1/S2, No MRGs, no JVD Respiratory: CTAB, no respiratory distress, No rales or wheezes Abdomen: Soft, mild tenderness diffusely, non-distended, normal bowel sounds, no guarding or rebound. Skin: Warm, dry, normal turgor, no rash MS/Extremity: Pulses equal, no cyanosis, neurovascular intact, FROM Neuro: COAx4, GCS 15, strength 5/5, CN 2-12 intact, normal cerebellar exam, normal gait, Psych: Normal behavior, mood, and affect normal Extremities-trace edema without any palpable cords, Homans sign is negative LABORATORY RESULTS Laboratory Tests 08/29/25 22:19: White Blood Count 10.5, Red Blood Count 3.63, Hemoglobin 11.1, Hematocrit 33.9, Mean Corpuscular Volume 93.4, Mean Corpuscular Hemoglobin 30.6, Mean Corpuscular Hemoglobin Concent 32.7, Red Cell Distribution Width 13.8, Platelet Count 199, Mean Platelet Volume 9.6, Immature Granulocyte % (Auto) 0.7, Neutrophils (%) (Auto) 32.1, Lymphocytes (%) (Auto) 57.9, Monocytes (%) (Auto) 7.4, Eosinophils (%) (Auto) 1.6, Basophils (%) (Auto) 0.3, Neutrophils # (Auto) 3.4, Lymphocytes # (Auto) 6.1, Monocytes # (Auto) 0.8, Eosinophils # (Auto) 0.17, Basophils # (Auto) 0.03, Absolute Immature Granulocyte (auto 0.07, Segmented Neutrophils % 30, Lymphocytes % (Manual) 25, Monocytes % (Manual) 11, Eosinophils % (Manual) 1, Basophils % (Manual) 1, Metamyelocytes % 1, Myelocytes % 2, Nucleated Red Blood Cells 0.0, Differential Comment MANUAL DIFFERENTIAL, Reactive Lymphocytes 29, White Cell Morphology Comment See comments, Platelet Morphology Comment ADEQUATE, Red Blood Cell Morphology ANISO 1+, Sodium Level 142, Potassium Level 3.8, Chloride Level 106, Carbon Dioxide Level 25, Blood Urea Nitrogen 34, Creat inine 1.0, Glomerular Filtration Rate Calc 56, Random Glucose 184, Total Calcium 8.9, Lipase 58 08/29/25 23:00: Urine Color LIGHT-YELLOW, Urine Appearance CLEAR, Urine pH 7.0, Urine Specific [place] 1.021, Urine Protein NEGATIVE, Urine Glucose (UA) NEGATIVE, Urine Ketones NEGATIVE, Urine Occult Blood NEGATIVE, Urine Nitrate NEGATIVE, Urine Bilirubin NEGATIVE, Urine Urobilinogen 0.2, Urine Leukocyte Esterase 75, Urine RBC 2-5, Urine WBC 11-25, Urine Other Crystals (Auto) 1, Urine Bacteria RARE 08/30/25 06:09: White Blood Count 9.4, Red Blood Count 3.71, Hemoglobin 11.3, Hematocrit 34.7, Mean Corpuscular Volume 93.5, Mean Corpuscular Hemoglobin 30.5, Mean Corpuscular Hemoglobin Concent 32.6, Red Cell Distribution Width 13.7, Platelet Count 198, Mean Platelet Volume 9.5, Immature Granulocyte % (Auto) 0.5, Neutrophils (%) (Auto) 42.1, Lymphocytes (%) (Auto) 48.3, Monocytes (%) (Auto) 7.4, Eosinophils (%) (Auto) 1.3, Basophils (%) (Auto) 0.4, Neutrophils # (Auto) 4.0, Lymphocytes # (Auto) 4.6, Monocytes # (Auto) 0.7, Eosinophils # (Auto) 0.12, Basophils # (Auto) 0.04, Absolute Immature Granulocyte (auto 0.05, Nucleated Red Blood Cells 0.0, Sodium Level 144, Potassium Level 4.2, Chloride Level 108, Carbon Dioxide Level 28, Blood Urea Nitrogen 24, Creatinine 0.9, Glomerular Filtration Rate Calc 63, Random Glucose 121, Total Calcium 8.6, Total Bilirubin 0.3, Aspartate Amino Transf (AST/SGOT) 32, Alanine Aminotransferase (ALT/SGPT) 34, Alkaline Phosphatase 110, Total Protein 7.1, Albumin 3.7 08/30/25 08:27: Whole Blood Glucose 151 Microbiology Date/Time Source Procedure Growth Status 08/29/25 23:00 Urine,Clean Catch - Final Complete PLAN Patient with what appears to be esophageal spasm from acid reflux ppi hydrate and monitor Constipation disimpaction with lactulose Dementia stable LEONA RIVERA MD Aug 30, 2025 13:02
--- NOTE | 2025-08-30 13:04 | DS ---
Discharge Summary DIAGNOSE(S): [Constipation GERD] HOSPITAL COURSE SUMMARY: [Patient with constipation was advised lactulose and she being asymptomatic discharged to be followed as an outpatient and advised proton pump inhibitor for her stomach] SYSTEMS ANALYST DEVELOPER(S): [] PROCEDURE(S)/TREATMENT(S): [None] PROBLEM(S): [] FOLLOW-UP TEST(S): [GI workup if symptoms persist] DISCHARGE INSTRUCTIONS: [Follow up with PCP in 1-2 days] Home Meds Reported Medications Memantine HCl (Memantine HCl) 10 Mg Tablet, 1 TAB PO BID for 30 Days, #60 TAB 0 Refills 10/18/24 Levothyroxine Sodium (Levothyroxine) 75 Mcg Capsule, 1 TAB PO DAILY for 30 Days, #30 CAP 0 Refills 10/18/24 Famotidine (Famotidine) 20 Mg Tablet, 1 TAB PO BID for 30 Days, #60 TAB 0 Refills 10/18/24 Pantoprazole Sodium (Pantoprazole Sodium) 40 Mg Tablet.dr, 1 TAB PO DAILY for 30 Days, #30 TAB 0 Refills 10/18/24 LEONA RIVERA MD Aug 30, 2025 13:03
== END 2025-08-30 13:30 | disposition home or self-care (01) ==
LOC: EDH 21:51 → EDHIP 08-30 01:22
PROVIDERS: ADMIT Internal Medicine; ATTEND Internal Medicine
DX: K59.00 Constipation, unspecified (principal); K21.9 Gastro-esophageal reflux disease without esophagitis; K57.30 Diverticulosis of large intestine without perforation or abscess without bleeding; N39.0 Urinary tract infection, site not specified; N17.9 Acute kidney failure, unspecified; E78.00 Pure hypercholesterolemia, unspecified; E03.9 Hypothyroidism, unspecified; R11.0 Nausea; M19.90 Unspecified osteoarthritis, unspecified site; Z79.899 Other long term (current) drug therapy; Z98.890 Other specified postprocedural states
CPT/HCPCS: 96361 ×2; 99285; 80048; 83690; 85025 ×2; 87086 ×2; 81001; 36415 ×2; 74176; 96365; 80053; 87186; 82948; G0378 ×12; J7030; J0696